=== PATIENT | male | born 1935 | race Caucasian/White ===

== ENCOUNTER 2017-05-31 14:04 | Outpatient (CLI) | payer MEDICARE ==
--- NOTE | 2017-06-02 12:02 | ULT ---
CAROTID DUPLEX SONOGRAM: History: Carotid bruit. FINDINGS: Right: Mild plaque is present. Color and spectral doppler evaluation, peak systolic velocity of 74 cm /sec and ICA to CCA ratio of 1.0 suggests no hemodynamically significant stenosis within the extracra nial right ICA. Antegrade flow is present within the vertebral artery. Left: Mild plaque is present. Color and spectral doppler evaluation, peak systolic velocity of 99 cm/ sec, and ICA to CCA ratio of 1.2 suggests no hemodynamically significant stenosis within the extracra nial left ICA. Antegrade flow is present within the vertebral artery. IMPRESSION: Atherosclerosis. There is no sonographic evidence of significant extracranial ICA stenosis. POS: [facility]
== END 2017-05-31 14:05 | disposition home or self-care (01) ==
LOC: NAV ULT 14:04
PROVIDERS: ATTEND Internal Medicine
DX: R09.89 Other specified symptoms and signs involving the circulatory and respiratory systems (principal); I65.23 Occlusion and stenosis of bilateral carotid arteries
CPT/HCPCS: 93880

== ENCOUNTER 2017-07-30 09:08 | Outpatient (CLI) | payer MEDICARE ==
--- NOTE | 2017-07-30 10:48 | RAD ---
RIGHT HIP 2 VIEWS: Date: 07/30/17 HISTORY: Right hip pain. FINDINGS: There is complete loss of joint space, prominent subchondral sclerosis, and mild osteophytosis. Subco rtical lucencies involve both sides of the hip joint. No displaced fractures are apparent. Calcificat ion over the arterial structures. IMPRESSION: 1. Severe osteoarthritis right hip. 2. Atherosclerosis. POS: [facility]
== END 2017-07-30 09:09 | disposition home or self-care (01) ==
LOC: NAV RAD 09:08
PROVIDERS: ATTEND Internal Medicine
DX: Z00.00 Encounter for general adult medical examination without abnormal findings (principal); M25.551 Pain in right hip; M16.11 Unilateral primary osteoarthritis, right hip; I70.90 Unspecified atherosclerosis

== ENCOUNTER 2017-09-11 08:26 | Emergency (ER) | payer MEDICARE ==
[2017-09-11 09:24] LABS: #Basophils 0.1 thou/uL (0.0-0.2); #Lymphocytes 1.5 thou/uL (1.20-3.40); #Monocytes 0.8 thou/uL (0.11-0.59); #Neutrophils 9.8 thou/uL (1.40-6.50); %Basophils 0.5 % (0.0-1.0); %Eosinophils 0.4 % (0.0-10.0); %Lymphocytes 12.1 % (21.0-51.0); %Monocytes 6.7 % (0.0-10.0); %Neutrophils 80.4 % (42.0-75.0); Hemoglobin 7.7 g/dL (14.0-18.0); Mean Corpuscular HGB CONC 32.2 g/dL (32.0-36.0); Mean Corpuscular Hemoglobin 26.6 pg (27.0-31.0); Mean Corpuscular Volume 82.4 fl (80.0-94.0); Mean Platelet Volume 4.8 fL (7.4-10.4); Platelet Count 334 thou/uL (130-400); RBC Distribution Width 14.2 % (11.5-14.5); Red Blood Cell (RBC) Count 2.89 mill/uL (4.70-6.10); White Blood Cell (WBC) Count 12.2 thou/uL (4.8-10.8)
[2017-09-11] MEDS ORDERED: Sodium Chloride 0.9% 1,000 ML ONE (09:28)
[2017-09-11 09:41] LABS: ALT (SGPT) 35 U/L (8-55); AST (SGOT) 115 U/L (5-34); Albumin 3.4 g/dL (3.4-4.8); Alkaline Phosphatase 88 U/L (40-150); Anion Gap 13 mmol/L (10-20); BUN (Urea Nitrogen) 32 mg/dL (8.4-25.7); Bilirubin, Total 0.6 mg/dL (0.2-1.2); Calc. Creatinine Clearance 0 mL/min (70-130); Calcium 9.5 mg/dL (7.8-10.44); Carbon Dioxide 22 mmol/L (23-31); Chloride 98 mmol/L (98-107); Estimated GFR-MDRD 48; Globulin 3.7 g/dL (2.4-3.5); Glucose 107 mg/dL (83-110); Potassium 4.2 mmol/L (3.5-5.1); Protein, Total 7.1 g/dL (5.8-8.1); Sodium 129 mmol/L (136-145)
[2017-09-11 09:43] LABS: Troponin I 0.054 ng/mL (< 0.028)
[2017-09-11 09:56] LABS: CKMB 40.8 ng/mL (0-6.6); Critical Call CKMBM 0
[2017-09-11] MEDS ORDERED: Aspirin 325 MG TAB ONE (09:58)
[2017-09-11 10:12] LABS: Bilirubin Negative (Negative); Blood, Urine Moderate (Negative); Glucose, Urine (Dipstick) Negative (Negative); Leukocyte Trace (Negative); Nitrite Negative (Negative); Protein, Urine (Dipstick) 30 mg/dL (Neg-Trace); Specific Gravity, Urine 1.015 (1.005-1.030); Urobilinogen 0.2 mg/dL (0.2-1.0); pH, Urine 5.5 (5.0-9.0)
[2017-09-11 10:20] LABS: Clarity SL HAZY (Clear)
[2017-09-11 10:21] LABS: RBC/HPF 0-3 HPF (0-3); WBC/HPF 0-3 HPF (0-3)
[2017-09-11 10:22] LABS: Bacteria/HPF Rare-Few HPF (None Seen); Hyaline Casts/LPF 0-3 HYALINE CAST LPF (0-3 Hyaline); Squamous Epithelial 0-3 HPF (0-3)
--- NOTE | 2017-09-11 10:40 | RAD ---
TWO VIEWS CHEST: DATE: 09/11/17. PROVIDED CLINICAL HISTORY: Syncope. FINDINGS: Comparison is made with the study dated 05/17/17. Cardiac and mediastinal silhouette is unchanged in a ppearance. Median sternotomy changes are seen. No focal consolidation, pleural fluid, or pneumothor ax apparent. IMPRESSION: No evidence for an acute cardiopulmonary process. POS: [facility]
--- NOTE | 2017-09-11 10:41 | CT ---
CT BRAIN NONCONTRAST: HISTORY: An 81-year-old male status post syncope and altered mental status with confusion. Dizziness. FINDINGS: There is no midline shift or any other mass effect. There is no evidence of acute intracranial hemor rhage, large cortical infarct, obstructive hydrocephalus, or extraaxial fluid collection. The calvar ium is intact. There is diffuse parenchymal volume loss. There are low attenuation areas in the whi te matter. These are nonspecific, but in a patient of this age, they are probably chronic ischemic w rosendo matter changes due to microvascular atherosclerosis. IMPRESSION: 1) No acute intracranial findings. 2) Involutional changes and chronic ischemic white matter changes. jn [] POS: [facility]
[2017-09-11] MEDS ORDERED: Nitrofurantoin Macrocrystal 50 MG CAP ONE (10:53)
== END 2017-09-11 12:07 | disposition short-term general hospital (02) ==
LOC: NAV ERS 08:26
DX: E86.0 Dehydration (principal); D64.9 Anemia, unspecified; N39.0 Urinary tract infection, site not specified; R74.8 Abnormal levels of other serum enzymes; I25.10 Atherosclerotic heart disease of native coronary artery without angina pectoris; E03.9 Hypothyroidism, unspecified; K21.9 Gastro-esophageal reflux disease without esophagitis; E78.5 Hyperlipidemia, unspecified; I10 Essential (primary) hypertension
CPT/HCPCS: 70450; 71046; 80053; 81003; 81015; 82553; 83880; 84484; 85025; 87086; 93005; 96360; J7050

== ENCOUNTER 2017-09-17 10:32 | Outpatient (CLI) | payer MEDICARE ==
[2017-09-17 11:01] LABS: #Basophils 0.1 thou/uL (0.0-0.2); #Eosinphils 0.2 thou/uL (0.0-0.7); #Lymphocytes 1.3 thou/uL (1.20-3.40); #Monocytes 0.9 thou/uL (0.11-0.59); #Neutrophils 8.5 thou/uL (1.40-6.50); %Basophils 0.6 % (0.0-1.0); %Eosinophils 1.4 % (0.0-10.0); %Lymphocytes 11.7 % (21.0-51.0); %Monocytes 7.8 % (0.0-10.0); %Neutrophils 78.5 % (42.0-75.0); Hemoglobin 7.2 g/dL (14.0-18.0); Mean Corpuscular HGB CONC 31.9 g/dL (32.0-36.0); Mean Corpuscular Hemoglobin 26.2 pg (27.0-31.0); Mean Corpuscular Volume 82.3 fl (80.0-94.0); Mean Platelet Volume 4.4 fL (7.4-10.4); Platelet Count 371 thou/uL (130-400); RBC Distribution Width 14.1 % (11.5-14.5); Red Blood Cell (RBC) Count 2.75 mill/uL (4.70-6.10); White Blood Cell (WBC) Count 10.8 thou/uL (4.8-10.8)
[2017-09-17 18:31] LABS: Cardiac Risk 2.7 (Less than 4.5)
== END 2017-09-17 10:33 | disposition home or self-care (01) ==
LOC: NAV LABSP 10:32
PROVIDERS: ATTEND Internal Medicine
DX: N40.1 Benign prostatic hyperplasia with lower urinary tract symptoms (principal); I10 Essential (primary) hypertension; I15.9 Secondary hypertension, unspecified; E86.0 Dehydration
CPT/HCPCS: 80061; 83880; 85025; G0103

== ENCOUNTER 2017-10-06 03:00 | Emergency (ER) | payer MEDICARE ==
[2017-10-06 03:38] LABS: #Basophils 0.1 thou/uL (0.0-0.2); #Eosinphils 0.1 thou/uL (0.0-0.7); #Lymphocytes 1.9 thou/uL (1.20-3.40); #Monocytes 0.9 thou/uL (0.11-0.59); %Basophils 0.9 % (0.0-1.0); %Eosinophils 1.1 % (0.0-10.0); %Lymphocytes 17.3 % (21.0-51.0); %Monocytes 8.1 % (0.0-10.0); %Neutrophils 72.6 % (42.0-75.0); Hemoglobin 9.1 g/dL (14.0-18.0); Mean Corpuscular HGB CONC 31.6 g/dL (32.0-36.0); Mean Corpuscular Hemoglobin 25.7 pg (27.0-31.0); Mean Corpuscular Volume 81.5 fl (80.0-94.0); Mean Platelet Volume 4.4 fL (7.4-10.4); Platelet Count 438 thou/uL (130-400); RBC Distribution Width 13.6 % (11.5-14.5); Red Blood Cell (RBC) Count 3.55 mill/uL (4.70-6.10); White Blood Cell (WBC) Count 11.1 thou/uL (4.8-10.8)
[2017-10-06 03:53] LABS: ALT (SGPT) 19 U/L (8-55); AST (SGOT) 23 U/L (5-34); Albumin 3.2 g/dL (3.4-4.8); Alkaline Phosphatase 104 U/L (40-150); Anion Gap 16 mmol/L (10-20); BUN (Urea Nitrogen) 22 mg/dL (8.4-25.7); Bilirubin, Total 0.6 mg/dL (0.2-1.2); Calc. Creatinine Clearance 0 mL/min (70-130); Calcium 8.7 mg/dL (7.8-10.44); Carbon Dioxide 21 mmol/L (23-31); Chloride 97 mmol/L (98-107); Estimated GFR-MDRD 58; Globulin 3.6 g/dL (2.4-3.5); Glucose 102 mg/dL (83-110); Lipase 27 U/L (8-78); Protein, Total 6.8 g/dL (5.8-8.1); Sodium 129 mmol/L (136-145)
== END 2017-10-06 03:50 | disposition home or self-care (01) ==
LOC: NAV ERS 03:00
DX: K43.9 Ventral hernia without obstruction or gangrene (principal); N40.0 Benign prostatic hyperplasia without lower urinary tract symptoms; I25.10 Atherosclerotic heart disease of native coronary artery without angina pectoris; E03.9 Hypothyroidism, unspecified; K21.9 Gastro-esophageal reflux disease without esophagitis; E78.5 Hyperlipidemia, unspecified; I10 Essential (primary) hypertension; Z79.899 Other long term (current) drug therapy; Z79.82 Long term (current) use of aspirin
CPT/HCPCS: 80053; 83690; 85025; 99284